=== PATIENT | female | born 1965 | race Caucasian/White ===

== ENCOUNTER 2024-01-29 11:55 | Emergency (ER) | payer BC, SELFPAY ==
--- NOTE | ~2024-01-29 | US_ITS ---
EXAMINATION: US PELVIS CLINICAL INFORMATION: Postmenopausal bleeding COMPARISON: None available. TECHNIQUE: Ultrasound of the pelvis is performed using both transabdominal and transvaginal transducers along with Doppler. Transvaginal imaging is performed due to inadequate visualization transabdominally. FINDINGS: Uterus: The uterus is retroverted and measures 9.0 x 4.0 x 4.3 cm. For a volume of 761 mL. The double wall endometrial thickness is 4 mm. The uterus is smooth in contour and has normal myometrial echogenicity. There is a fundal submucosal mass present measuring 2.7 x 3.5 x 2.6 that has shadowing areas of calcification. Likely diagnosis would be a uterine fibroid. Adnexa: Both ovaries are visualized. There is normal color flow to the adnexa. There is no ovarian torsion. There is no pelvic ascites or fluid collection. Right ovary measures 1.1 x 1.0 x 0.8 cm. Left ovary measures 0.8 x 1.8 x 0.9 cm. US/US pelvic and transvaginal IMPRESSION: 3.5 cm submucosal uterine mass, most likely a fibroid.
[2024-01-29 12:17] VITALS: BP 152/60; PULSE 78; RESP 16; O2SAT 100; BMI 30.2
--- NOTE | 2024-01-29 12:20 | ED_ITS ---
HPI - General Adult General Chief complaint: Vaginal Bleeding Stated complaint: post menopausal bleeding Time Seen by Provider: 01/29/24 17:56 Source: patient Mode of arrival: ambulatory Limitations: no limitations History of Present Illness HPI narrative: Patient 58 years old with postmenopausal more than 5 years yesterday noticed discomfort suprapubic area and small amount of bright red blood with small clots small amount of bleed again today no history of endometrial cancer in the family patient denied any urinary complaints no fever no chills no nausea no vomiting no fever Related Data Allergies Allergy/AdvReac Type Severity Reaction Status Date / Time No Known Allergies Allergy Verified 01/29/24 12:22 Review of Systems 2 Review of Systems: Yes all other systems are reviewed and are negative [facility] Social History Social History Advance Directives: No Advance Directives Information Provided: No Physical Exam ED Vital Signs: Vital Signs - 24 hr 01/29/24 12:17 01/29/24 18:57 01/29/24 19:02 Temperature 98.1 F 98.1 F Pulse Rate 78 71 71 Respiratory Rate 16 16 16 Blood Pressure 152/60 H 133/67 133/67 Pulse Oximetry 100 100 100 Oxygen Delivery Method Room Air Room Air Room Air BMI result Body Mass Index 30.2 Appearance: Alert. Oriented X3. No acute distress. Eyes: No pallor or icterus ENT: Pharynx normal. Oral Mucosa moist Neck: Normal inspection. Neck supple. CVS: Normal heart rate and rhythm. Pulses normal. Respiratory: No respiratory distress. Equal air entry bilateral, no wheezing/rales/rhonchi Abdomen: Soft and nontender. Bowel sounds are present, no mass palpable, no CVA tenderness Skin: Skin warm and dry. Normal skin color. Normal skin turgor. Extremities: No lower extremity edema. No calf tenderness Neuro: Oriented X 3. Course Course Course Narrative: This is a rapid medical exam. Deferred additional HPI, ROS, PE to primary provider. 58 yo female with no known medical history here with post menopausal bleeding since yesterday. Went to and had negative urine testing and sent here for further w/u. Called [employer] [facility] [facility] and has appointment in February. Reports alternating between bright red and brown. Will obtain labs, UA, pelvic US Declined STI testing VSS Medical Decision Making Medical Decision Making MDM Narrative: Patient has dysfunctional uterine bleed postmenopausal advised to follow with small business representative labs are stable ultrasound showed fibroid Differential Diagnosis Differential Diagnoses: The differential diagnosis associated with the presentation includes Endometrial cancer/dysfunctional uterine bleed Lab Data [facility] Lab Attestation statement: I reviewed the patient's lab results. 01/29/24 12:53 01/29/24 12:53 Labs: Lab Results 01/29/24 01/29/24 Range/Units 12:53 17:45 WBC 5.5 (4.8-10.8) X10*3/uL RBC 4.54 (4.20-5.50) X10*6/uL Hgb 13.3 (12.0-16.0) g/dl Hct 40.1 (37.0-47.0) % MCV 88.3 (80.0-98.0) fL MCH 29.3 (27.0-33.0) pg MCHC 33.2 (31.0-35.0) g/dl RDW 12.1 (11.0-16.0) % Plt Count 352 (160-400) X10*3/uL MPV 9.8 (9.4-12.3) fL Immature Gran % (Auto) 0.2 (0.0-0.4) % Neut % (Auto) 60.3 (45-73) % Lymph % (Auto) 29.9 (20-40) % Payne % (Auto) 7.1 (2-11) % Eos % (Auto) 2.0 (0-4) % Baso % (Auto) 0.5 (0-2) % Lymph # (Auto) 1.7 (1.2-4.9) X10*3/uL Payne # (Auto) 0.4 (0.1-1.2) X10*3/uL Eos # (Auto) 0.1 (0.0-0.4) X10*3/uL Baso # (Auto) 0.0 (0.0-0.2) X10*3/uL Abs Immat Gran (auto) 0.01 (0.00-0.03) X10*3/uL Absolute Neuts (auto) 3.3 (2.0-8.3) x10*3/uL Absolute Nucleated RBC 0.000 (0.0-0.012) X10*3/uL Nucleated RBC % (auto) 0.0 (0.0-0.2) /100WBC Sodium 139 (135-145) mmol/L Potassium 4.7 (3.3-5.1) mmol/L Chloride 104 (96-108) mmol/L Carbon Dioxide 29 (22-29) mmol/L Anion Gap 11 L (12-20) BUN 16 (9-16) mg/dL Creatinine 0.77 (0.5-1.4) mg/dL Estim Creat Clear Calc 81.3 Estimated GFR > 60 Random Glucose 103 (60-115) mg/dL Calcium 9.7 (8.4-10.2) mg/dL Urine Color Yellow Urine Appearance Clear Urine pH 8.0 (5.0-9.0) Ur Specific [place] 1.015 (1.005-1.025) Urine Protein Negative (Neg-Trace) mg/dL Urine Glucose (UA) Negative (Negative) mg/dL Urine Ketones Negative (Negative) mg/dL Urine Blood Negative (Negative) Urine Nitrite Negative (Negative) Ur Leukocyte Esterase Negative (Negative) Independent Interpretation I performed an independent interpretation of an: Ultrasound Radiology Impression Discussion of test interpretation with radiology: I have reviewed the radiologist's reading. Radiologist Impression: [place] [id number] Ultrasound Report Signed Patient: Elizabeth Bearden MR#: [id number] : 1965 Acct:[id number] Age/Sex: 58 / F ADM Date: 01/29/24 Loc: .ED Attending Dr: Ordering Physician: Marivel Marroquin NP Date of Service: 01/29/24 Procedure(s): US pelvic and transvaginal Accession Number(s): [id number] cc: Physician,Unknown ; Marivel Marroquin NP~ EXAMINATION: US PELVIS CLINICAL INFORMATION: Postmenopausal bleeding COMPARISON: None available. TECHNIQUE: Ultrasound of the pelvis is performed using both transabdominal and transvaginal transducers along with Doppler. Transvaginal imaging is performed due to inadequate visualization transabdominally. FINDINGS: Uterus: The uterus is retroverted and measures 9.0 x 4.0 x 4.3 cm. For a volume of 761 mL. The double wall endometrial thickness is 4 mm. The uterus is smooth in contour and has normal myometrial echogenicity. There is a fundal submucosal mass present measuring 2.7 x 3.5 x 2.6 that has shadowing areas of calcification. Likely diagnosis would be a uterine fibroid. Adnexa: Both ovaries are visualized. There is normal color flow to the adnexa. There is no ovarian torsion. There is no pelvic ascites or fluid collection. Right ovary measures 1.1 x 1.0 x 0.8 cm. Left ovary measures 0.8 x 1.8 x 0.9 cm. US/US pelvic and transvaginal IMPRESSION: 3.5 cm submucosal uterine mass, most likely a fibroid. Discharge Plan Discharge Clinical Impression: Dysfunctional uterine bleeding Patient Disposition: Home, Self-Care Instructions: Bleeding (ED) Additional Instructions: Follow-up with small business representative as scheduled for further management Interventions: ED Discharge Assessment Last Done: 01/29/24 19:02 Discharge Date/Time: 01/29/24 19:04 Print Language: Turkish
[2024-01-29 12:59] LABS: MANUAL DIFF FLAG NO
[2024-01-29 13:01] LABS: Basophils Percent Auto 0.5 % (0-2); Eosinophils Absolute Auto 0.1 X10*3/uL (0.0-0.4); Hematocrit 40.1 % (37.0-47.0); Hemoglobin 13.3 g/dl (12.0-16.0); Imm Gran Abs Auto 0.01 X10*3/uL (0.00-0.03); Imm Gran Pct Auto 0.2 % (0.0-0.4); Lymphocytes Absolute Auto 1.7 X10*3/uL (1.2-4.9); Lymphocytes Percent Auto 29.9 % (20-40); Mean Corpuscular HGB Conc 33.2 g/dl (31.0-35.0); Mean Corpuscular Hemoglobin 29.3 pg (27.0-33.0); Mean Corpuscular Volume 88.3 fL (80.0-98.0); Mean Platelet Volume 9.8 fL (9.4-12.3); Monocytes Absolute Auto 0.4 X10*3/uL (0.1-1.2); Monocytes Percent Auto 7.1 % (2-11); Neutrophils Absolute Auto 3.3 x10*3/uL (2.0-8.3); Neutrophils Percent Auto 60.3 % (45-73); Platelet Count 352 X10*3/uL (160-400); Red Blood Count 4.54 X10*6/uL (4.20-5.50); Red Cell Distribution Width 12.1 % (11.0-16.0); White Blood Count 5.5 X10*3/uL (4.8-10.8)
[2024-01-29 13:12] LABS: Anion Gap 11 (12-20); Blood Urea Nitrogen 16 mg/dL (9-16); Calcium 9.7 mg/dL (8.4-10.2); Carbon Dioxide 29 mmol/L (22-29); Chloride 104 mmol/L (96-108); Creatinine Clr Calc Pharmacy 81.3; Estimated Glomerular Filt Rate > 60; Glucose Random 103 mg/dL (60-115); Potassium 4.7 mmol/L (3.3-5.1); Sodium 139 mmol/L (135-145)
[2024-01-29 18:11] LABS: Appearance Urine Clear; Color Urine Yellow; Glucose Urine UA Negative (Negative); Leukocyte Esterase Urine Negative (Negative); Nitrite Urine Negative (Negative); Specific Gravity - Urine 1.015 (1.005-1.025); Urine Blood Negative (Negative); Urine Ketones Negative (Negative); Urine Protein Negative (Neg-Trace)
[2024-01-29 18:57] VITALS: BP 133/67; PULSE 71; RESP 16; TEMP 36.7; O2SAT 100
[2024-01-29 19:02] VITALS: BP 133/67; PULSE 71; RESP 16; TEMP 36.7; O2SAT 100
== END 2024-01-29 19:04 | disposition home or self-care (01) ==
PROVIDERS: Nurse Practitioner Family; Emergency Provider Internal Medicine; PCP Internal Medicine
DX: N93.8 Other specified abnormal uterine and vaginal bleeding (principal)
CPT/HCPCS: 36415; 76830; 76856; 80048; 81003; 85025; 99283; 99284